=== PATIENT | male | born 1945 | race Caucasian/White ===

== ENCOUNTER 2017-04-25 15:39 | Emergency (ER) | payer MEDICARE ==
--- NOTE | 2017-04-25 16:18 | ED ---
General Adult HPI - General Chief complaint: Extremity Problem,Nontraumatic Stated complaint: swollen/red knee Time Seen by Provider: 04/25/17 16:10 Source: patient, RN notes reviewed, old records reviewed Mode of arrival: wheelchair Limitations: no limitations - History of Present Illness Initial comments: This is a 71-year-old LDR for evaluation. Patient is here for evaluation of knee pain left knee pain. This pain for 2 days worse with erythema anteriorly. No fevers. Patient does have range of motion of left leg. No history of gout no history of trauma. Patient does admit to doing some gardening and being as needs during entire guarding episode. Patient has no other complaints - Related Data Home Medications Medication Instructions Recorded Confirmed Methyldopa/Hydrochlorothiazide 1 tab PO DAILY 09/07/16 04/25/17 [Methyldopa-Hctz 250-25 mg Tab] Multivitamins, Thera [Multivitamin] 1 tab PO DAILY 09/07/16 04/25/17 Simvastatin [Zocor] 40 mg PO HS 09/07/16 04/25/17 Previous Rx's Medication Instructions Recorded Cephalexin [Keflex] 500 mg PO Q6HR #28 cap 04/25/17 HYDROcodone/APAP 5-325MG [[place] 1 tab PO Q6HR PRN #30 tab 04/25/17 5-325] Naproxen [Naprosyn] 500 mg PO Q12HR #30 tab 04/25/17 Allergies Allergy/AdvReac Type Severity Reaction Status Date / Time propoxyphene [From Darvon] Allergy "MAKES ME Verified 04/25/17 16:24 CRAZY" Review of Systems ROS Statement: Those systems with pertinent positive or pertinent negative responses have been documented in the HPI. ROS Other: All systems not noted in ROS Statement are negative. Past Medical History Past Medical History: Hyperlipidemia, Hypertension History of Any Multi-Drug Resistant Organisms: None Reported Past Surgical History: No Surgical Hx Reported, Orthopedic Surgery Additional Past Surgical History / Comment(s): TENNIS ELBOW. Past Anesthesia/Blood Transfusion Reactions: No Reported Reaction Past Psychological History: No Psychological Hx Reported Smoking Status: Never smoker Past Alcohol Use History: Rare Past Drug Use History: None Reported General Exam - General Exam Comments Initial Comments: No evidence of knee effusion Limitations: no limitations General appearance: alert, in no apparent distress Head exam: Present: atraumatic, normocephalic, normal inspection Eye exam: Present: normal appearance, PERRL, EOMI. Absent: scleral icterus, conjunctival injection, periorbital swelling ENT exam: Present: normal exam, mucous membranes moist Neck exam: Present: normal inspection. Absent: tenderness, meningismus, lymphadenopathy Respiratory exam: Present: normal lung sounds bilaterally. Absent: respiratory distress, wheezes, rales, rhonchi, stridor Cardiovascular Exam: Present: regular rate, normal rhythm, normal heart sounds. Absent: systolic murmur, diastolic murmur, rubs, gallop, clicks GI/Abdominal exam: Present: soft, normal bowel sounds. Absent: distended, tenderness, guarding, rebound, rigid Extremities exam: Present: normal inspection, full ROM, normal capillary refill. Absent: tenderness, pedal edema, joint swelling, calf tenderness Back exam: Present: normal inspection Neurological exam: Present: alert, oriented X3, CN II-XII intact Psychiatric exam: Present: normal affect, normal mood Skin exam: Present: warm, dry, intact, normal color. Absent: rash Course Vital Signs 04/25/17 15:49 Temperature 98.8 F Pulse Rate 88 Respiratory 20 Rate Blood Pressure 161/78 O2 Sat by Pulse 99 Oximetry - Reevaluation(s) Reevaluation #1: 04/25/17 17:21 Patient has adequate pain control at this time Reevaluation #2: 04/25/17 17:21 Patient encouraged her to one of warning signs of possible septic arthritis, including lack increasing range of motion fever or worsening pain. Medical Decision Making - Medical Decision Making 71 out of the ER with left knee cellulitis. No fevers. Patient was treated with antiviral first pain control and antibiotics - Radiology Data Radiology results: report reviewed (X-ray left knee is negative for traumatic injury), image reviewed Disposition Clinical Impression: Cellulitis of left knee Disposition: HOME SELF-CARE Condition: Good Instructions: Cellulitis (ED) Prescriptions: Cephalexin [Keflex] 500 mg PO Q6HR #28 cap HYDROcodone/APAP 5-325MG [[place] 5-325] 1 tab PO Q6HR PRN #30 tab PRN Reason: Pain Naproxen [Naprosyn] 500 mg PO Q12HR #30 tab Referrals: Brandon Palma MD [Primary Care Provider] - 1-2 days
[2017-04-25] MEDS ORDERED: predniSONE 20 MG TAB PO STA (16:26)
[2017-04-25] MEDS ORDERED: HYDROcodone/APAP 5-325MG 1 EACH TAB PO STA (16:26)
[2017-04-25] MEDS ORDERED: KETOROLAC 60 MG/2 ML VIAL IM STA (16:26)
[2017-04-25] MEDS ORDERED: CEPHALEXIN 500 MG CAP PO STA (17:14)
--- NOTE | 2017-04-25 17:25 | XR ---
EXAMINATION TYPE: XR knee complete LT DATE OF EXAM: 04/25/2017 5:07 PM COMPARISON: NONE HISTORY: Pain TECHNIQUE: 3 views FINDINGS: I see no fracture nor dislocation. Joint spaces are fairly normal. There is no sign of knee joint effusion. There is minimal vascular calcification. IMPRESSION: There is minimal soft tissue swelling anterior to the patella. Otherwise negative left kn ee exam.
[2017-04-25 18:12] VITALS: BP 148/76; PULSE 82; RESP 16; TEMP 98.1
== END 2017-04-25 18:10 | disposition home or self-care (01) ==
LOC: EC 15:39
DX: L03.116 Cellulitis of left lower limb (principal); E78.5 Hyperlipidemia, unspecified; I10 Essential (primary) hypertension; Z88.5 Allergy status to narcotic agent; Z79.899 Other long term (current) drug therapy
CPT/HCPCS: 99284; 96372; 73562; J1885; J7512

== ENCOUNTER 2022-05-07 09:16 | Emergency (ER) | payer MEDICARE ==
[2022-05-07 09:22] VITALS: BP 141/74; PULSE 120; RESP 20; TEMP 99.1
[2022-05-07] MEDS ORDERED: BENZOCAINE/MENTHOL LOZENG 1 EACH LOZENGE MUCOUS MEM STA (10:13)
[2022-05-07] MEDS ORDERED: DEXAMETHASONE SOD PHOSPHATE 10 MG/ML 1 ML VIAL IM STA (10:19)
--- NOTE | 2022-05-07 10:31 | ED ---
ENT HPI - General Chief complaint: ENT Stated complaint: Diffulty swallowing, sore throat Time Seen by Provider: 05/07/22 09:58 Source: patient Mode of arrival: ambulatory Limitations: no limitations - History of Present Illness Initial comments: Patient is a 76-year-old male who presents to the emergency department with a chief complaint of sore throat. It started 2 days ago. Patient states on the first day he had an intermittent dry cough and some nasal congestion that has since resolved. Patient denies fever, chills, headache, runny nose, shortness of breath, chest pain, abdominal pain, nausea, and vomiting. Denies recent sick contacts. Patient is able to swallow without limitation however is reluctant due to pain. Patient states he took an at-home COVID-19 test 2 days ago which he states was negative. - Related Data Home Medications Medication Instructions Recorded Confirmed Methyldopa/Hydrochlorothiazide 1 tab PO DAILY 09/07/16 04/25/17 [Methyldopa-Hctz 250-25 mg Tab] Multivitamins, Thera [Multivitamin] 1 tab PO DAILY 09/07/16 04/25/17 Simvastatin [Zocor] 40 mg PO HS 09/07/16 04/25/17 Previous Rx's Medication Instructions Recorded Cephalexin [Keflex] 500 mg PO Q6HR #28 cap 04/25/17 HYDROcodone/APAP 5-325MG [[place] 1 tab PO Q6HR PRN #30 tab 04/25/17 5-325] Naproxen [Naprosyn] 500 mg PO Q12HR #30 tab 04/25/17 Benzocaine/Menthol Lozeng [Cepacol 1 each MUCOUS MEM Q4HR PRN #30 05/07/22 lozenge] lozenge Allergies Allergy/AdvReac Type Severity Reaction Status Date / Time propoxyphene [From Darvon] Allergy "MAKES ME Verified 05/07/22 09:21 DARLIN" Review of Systems ROS Statement: Those systems with pertinent positive or pertinent negative responses have been documented in the HPI. ROS Other: All systems not noted in ROS Statement are negative. Past Medical History Past Medical History: Hyperlipidemia, Hypertension History of Any Multi-Drug Resistant Organisms: None Reported Past Surgical History: No Surgical Hx Reported, Orthopedic Surgery Additional Past Surgical History / Comment(s): TENNIS ELBOW. Past Anesthesia/Blood Transfusion Reactions: No Reported Reaction Past Psychological History: No Psychological Hx Reported Past Alcohol Use History: Rare Past Drug Use History: None Reported General Exam Limitations: no limitations General appearance: alert, in no apparent distress Head exam: Present: atraumatic, normocephalic, normal inspection Eye exam: Present: normal appearance, PERRL, EOMI. Absent: scleral icterus, conjunctival injection, periorbital swelling ENT exam: Present: normal oropharynx, mucous membranes moist, normal external ear exam Neck exam: Present: normal inspection, full ROM. Absent: tenderness, meningismus, lymphadenopathy Respiratory exam: Present: normal lung sounds bilaterally. Absent: respiratory distress, wheezes, rales, rhonchi, stridor Cardiovascular Exam: Present: normal rhythm, tachycardia (patient states he is nervous to be in the hospital and not feeling well ), normal heart sounds. Absent: systolic murmur, diastolic murmur, rubs, gallop, clicks GI/Abdominal exam: Present: soft, normal bowel sounds. Absent: distended, tenderness, guarding, rebound, rigid Neurological exam: Present: alert, oriented X3, CN II-XII intact Psychiatric exam: Present: normal affect, normal mood Skin exam: Present: warm, dry, intact, normal color. Absent: rash Course Vital Signs 05/07/22 09:18 Temperature 99.1 F Pulse Rate 120 H Respiratory 20 Rate Blood Pressure 141/74 O2 Sat by Pulse 96 Oximetry Medical Decision Making - Medical Decision Making This is a 76-year-old male who presents with sore throat. Thorough history and examination were performed. Patient is able to swallow without difficulty however does report a lot of pain. There is no erythema, swelling, or exudate of the pharynx. No lymphadenopathy. Lungs are clear to auscultation bilaterally. No shortness of breath. Due to the significant pain the patient is reporting I will still test for strep throat as well as COVID-19. Patient given Decadron and Cepacol lozenge for throat pain. COVID-19 is detected. Patient meets criteria for monoclonal antibodies. He was given antibiotic treatment and tolerated it well. Patient will be discharged with quarantine instructions. I will send him home with Cepacol lozenges for throat pain. Patient to return if he experiences shortness of breath, chest pain, or other new or worsening symptoms. He verbalizes understanding and is agreeable to this plan. Dr. Hensley is my attending. - Lab Data Lab Results 05/07/22 05/07/22 Range/Units 10:35 10:35 Coronavirus (PCR) Detected A (Not Detectd) Group A Strep Rapid Negative (Negative) Disposition Clinical Impression: COVID-19 Disposition: HOME SELF-CARE Condition: Good Instructions (If sedation given, give patient instructions): Coronavirus Disease 2019 (COVID-19) Additional Instructions: Please quarantine at home for 5 days. Use prescribed cepakol Lozenges for throat pain. Follow-up with primary care provider in one to 2 days. Return to the emergency department if you experience new, concerning, or worsening symptoms, including but not limited to shortness of breath and chest pain. Is patient prescribed a controlled substance at d/c from ED?: No Referrals: Brandon Palma MD [Primary Care Provider] - 1-2 days Time of Disposition: 12:18
[2022-05-07] MEDS ORDERED: BEBTELOVIMAB (EUA) 175 MG/2 ML VIAL IV ONE (11:45)
== END 2022-05-07 12:52 | disposition home or self-care (01) ==
LOC: EC 09:16
DX: U07.1 COVID-19 (principal); I10 Essential (primary) hypertension; E78.5 Hyperlipidemia, unspecified; Z79.899 Other long term (current) drug therapy; Z88.8 Allergy status to other drugs, medicaments and biological substances
CPT/HCPCS: 87081; 87430; 87635; 99283; 96372; J1100; Q0222

== ENCOUNTER 2023-02-11 08:56 | Day surgery (SDC) | payer MEDICARE ==
--- NOTE | 2023-02-11 08:52 | P.GSHP ---
History of Present Illness H&P Date: 02/11/23 CHIEF COMPLAINT: Colon screen HISTORY OF PRESENT ILLNESS: The patient is a 77-year-old male who presents for colon screen. Lower endoscopy was offered for further evaluation and management. PAST MEDICAL HISTORY: Please see list. PAST SURGICAL HISTORY: Please see list. MEDICATIONS: Please see list. ALLERGIES: Please see list. SOCIAL HISTORY: No illicit drug use FAMILY HISTORY: No reports of Crohn disease or ulcerative colitis. REVIEW OF ORGAN SYSTEMS: CONSTITUTIONAL: No reports of fevers or chills. PHYSICAL EXAM: VITAL SIGNS: Stable GENERAL: Well-developed pleasant in no acute distress. HEENT: No scleral icterus. Extraocular movements grossly intact. Moist buccal mucosa. NECK: Supple without lymphadenopathy. CHEST: Unlabored respirations. Equal bilateral excursions. CARDIOVASCULAR: Regular rate and rhythm. Distal 2+ pulses. ABDOMEN: Soft, nontender, nondistended. MUSCULOSKELETAL: No clubbing, cyanosis, or edema. ASSESSMENT: 1. Colon screen. PLAN: 1. Recommend proceeding with a lower endoscopy Past Medical History Past Medical History: Hyperlipidemia, Hypertension, Prostate Disorder Additional Past Medical History / Comment(s): enlarged prostate History of Any Multi-Drug Resistant Organisms: None Reported Past Surgical History: Orthopedic Surgery Additional Past Surgical History / Comment(s): TENNIS ELBOW. Past Anesthesia/Blood Transfusion Reactions: No Reported Reaction Smoking Status: Never smoker Medications and Allergies Home Medications Medication Instructions Recorded Confirmed Type Multivitamins, Thera [Multivitamin] 1 tab PO DAILY 09/07/16 02/09/23 History Atorvastatin [Lipitor] 80 mg PO HS 02/09/23 02/09/23 History Eplerenone 25 mg PO DAILY 02/09/23 02/09/23 History amLODIPine [Norvasc] 10 mg PO DAILY 02/09/23 02/09/23 History Allergies Allergy/AdvReac Type Severity Reaction Status Date / Time propoxyphene [From Darvon] Allergy "MAKES ME Verified 02/09/23 09:52 CRAZY"
[~2023-02-11 08:56] MED LIST: LACTATED RINGERS 1,000 ML IV SCH; LIDOCAINE 1% (10MG/ML) FOR IV START INTRADERMA PRN
[2023-02-11 09:28] VITALS: RESP 16; TEMP 97.8
[2023-02-11] MEDS ORDERED: PROPOFOL 10 MG/ML 20 ML VIAL IV ONE (09:57)
[2023-02-11] MEDS ORDERED: LIDOCAINE 2% INJ 20 MG/ML (2 ML VIAL) ONE (09:57)
[2023-02-11] MEDS ORDERED: IV FLUID CONTINUATION 1,000 ML IV ONE (10:41)
--- NOTE | 2023-02-11 10:42 | P.PCN ---
Date of Procedure: 02/11/23 Description of Procedure: PREOPERATIVE DIAGNOSIS: Personal history of colon polyps Colonoscopy screening POSTOPERATIVE DIAGNOSIS: Tubular adenoma ascending colon Tubular adenoma hepatic flexure Sigmoid diverticulosis Internal hemorrhoids, grade 2 OPERATION: Colonoscopy to the ileocecal valve and appendiceal orifice, cecum Colonoscopy with hot snare polypectomy Colonoscopy with ablation of tumor, hepatic flexure SURGEON: Siobhan Massey MD. ANESTHESIA: MAC. INDICATIONS: The patient is an 77-year-old male who presents personal history of colon polyps. Last colonoscopy over 5 years. Benefits and risks were described and informed consent was obtained. DESCRIPTION OF PROCEDURE: The patient had undergone Sutab prep. The patient had been brought into the operating room and laid in the left lateral decubitus position. After adequate intravenous sedation, the rectum was examined with 2% lidocaine jelly. The prostate was unremarkable. External hemorrhoids were encountered. The rectal tone was within normal limits. No lesions were palpated in the rectal vault. An Olympus colonoscope was advanced until the cecum, ileocecal valve and appendiceal orifice were clearly viewed. The prep was fair. Sigmoid diverticulosis was encountered. Colonic polyps were found and removed. No evidence of focal colitis was found. Retroflexion of the scope demonstrated grade 2 internal hemorrhoids without active bleeding or inflammation. The colon was desufflated. The patient had tolerated the procedure well. Withdrawal time was over 6 minutes. FINDINGS: Aronchick preparation quality scale 3 (1-5) Internal hemorrhoids, grade 2 External hemorrhoids, grade 2. No arteriovenous malformations. Sigmoid diverticulosis Removal of 2 polyps: - Snare polypectomy ascending colon, 5 mm tubulovillous adenoma - Ablation hepatic flexure, 6 mm flat villous adenoma No focal colitis. RECOMMENDATIONS: Repeat colonoscopy 3 years, 2025 Plan - Discharge Summary Discharge Rx Participant: No New Discharge Prescriptions: Continue Multivitamins, Thera [Multivitamin (formulary)] 1 tab PO DAILY Atorvastatin [Lipitor] 80 mg PO HS Eplerenone 25 mg PO DAILY amLODIPine [Norvasc] 10 mg PO DAILY Discharge Medication List Multivitamins, Thera [Multivitamin (formulary)] 1 tab PO DAILY 09/07/16 [History] Atorvastatin [Lipitor] 80 mg PO HS 02/09/23 [History] Eplerenone 25 mg PO DAILY 02/09/23 [History] amLODIPine [Norvasc] 10 mg PO DAILY 02/09/23 [History] Follow up Appointment(s)/Referral(s): Siobhan Massey MD [STAFF PHYSICIAN] - As Needed Patient Instructions/Handouts: Diverticulosis Diet (GEN), Diverticulosis (GEN), Colorectal Polyps (GEN) Activity/Diet/Wound Care/Special Instructions: Repeat colonoscopy 3 years, 2025 Discharge Disposition: HOME SELF-CARE
[2023-02-11 10:44] VITALS: BP 121/69; PULSE 75
== END 2023-02-11 11:36 | disposition home or self-care (01) ==
LOC: ORWHC2ENDO 08:56
PROVIDERS: ATTEND Surgery Plastic and Reconstructive Surgery
DX: Z12.11 Encounter for screening for malignant neoplasm of colon (principal); D12.2 Benign neoplasm of ascending colon; K64.4 Residual hemorrhoidal skin tags; K57.30 Diverticulosis of large intestine without perforation or abscess without bleeding; K64.1 Second degree hemorrhoids; I10 Essential (primary) hypertension; N42.9 Disorder of prostate, unspecified; E78.5 Hyperlipidemia, unspecified; Z86.010 Personal history of colon polyps; Z79.899 Other long term (current) drug therapy
CPT/HCPCS: 88305; 45385; J2704; J2001